=== PATIENT | female | born 1995 ===

== ENCOUNTER 2022-09-08 17:54 | Emergency (ER) | payer SELFPAY ==
[~2022-09-08] VITALS: Ht 154.9 cm; Wt 67.6 kg
[2022-09-08 17:58] VITALS: TEMP 98.5
[2022-09-08] MEDS ORDERED: CRUTCHES MC (19:06)
[2022-09-08 19:21] VITALS: BP 137/86; PULSE 88
== END 2022-09-08 19:25 | disposition home or self-care (01) ==
LOC: COL.ER 17:54
DX: S93.402A Sprain of unspecified ligament of left ankle, initial encounter (principal); S80.12XA Contusion of left lower leg, initial encounter; Z28.310 Unvaccinated for COVID-19; W19.XXXA Unspecified fall, initial encounter; X50.1XXA Overexertion from prolonged static or awkward postures, initial encounter
CPT/HCPCS: J1885; L1846